=== PATIENT | male | born 1945 | race Caucasian/White ===

== ENCOUNTER 2018-02-14 11:52 | Emergency (ER) | payer OTHER ==
--- NOTE | 2018-02-14 13:02 | EDPHY ---
H & P Stated Complaint: 2 weeks fatigue and sob/sent by cardiology Time Seen by Provider: 02/14/18 12:39 HPI/ROS: CHIEF COMPLAINT: Shortness of breath HISTORY OF PRESENT ILLNESS: 72-year-old male with CAD presents with exertional shortness of breath. Over the past 2 weeks, he becomes short of breath with exertion. Yesterday he was hiking at elevation and felt much more fatigued than usual and could not keep up to his hiking group. He denies chest pain, leg swelling. Similar to prior cardiac symptoms. REVIEW OF SYSTEMS: complete 10 point ROS negative except at noted in the HPI - Personal History Current Tetanus Diphtheria and Acellular Pertussis (TDAP): Yes Tetanus Vaccine Date: <10 YRS 2005 - Medical/Surgical History Hx Asthma: No Hx Chronic Respiratory Disease: No Hx Diabetes: No Hx Cardiac Disease: Yes Hx Renal Disease: No Hx Cirrhosis: No Hx Alcoholism: No Hx HIV/AIDS: No Hx Splenectomy or Spleen Trauma: No Other PMH: cardiac stents/ prostatectomy/cancer/spinal stenosis/appy/ - Social History Smoking Status: Former smoker Alcohol Use: Sober Drug Use: None - Physical Exam Exam: General Appearance: Alert, pleasant Eyes: Pupils equal and round, no conjunctival pallor or injection ENT, Mouth: Mucous membranes moist Neck: Normal inspection Respiratory: Lungs are clear to auscultation Cardiovascular: Regular rate and rhythm Gastrointestinal: Abdomen is soft and nontender Neurological: A&O, nonfocal exam Skin: Warm and dry, no rash Extremities: Nontender, no pedal edema Psychiatric: Mood and affect normal Constitutional: Initial Vital Signs Temperature (C) 36.8 C 02/14/18 11:59 Heart Rate 60 02/14/18 11:59 Respiratory Rate 18 02/14/18 11:59 Blood Pressure 135/71 H 02/14/18 11:59 O2 Sat (%) 97 02/14/18 11:59 O2 Delivery Mode Room Air Allergies/Adverse Reactions: No Known Allergies Allergy (Verified 02/14/18 11:57) Home Medications: Medication Instructions Recorded Acyclovir 02/14/18 Bethanechol 02/14/18 Coq-10 02/14/18 Multivitamins 02/14/18 Omeprazole 02/14/18 Ranitidine HCl 02/14/18 Zocor 02/14/18 buPROPion 02/14/18 Medical Decision Making - Diagnostics EKG Interpretation: EKG interpreted by me reveals sinus rhythm, rate 54, no ST or T segment changes. Interpretation: Normal EKG Imaging Results: Imaging Impressions Chest X-Ray 02/14/18 12:40 Impression: No acute pulmonary disease. Chest/Thorax CTA 02/14/18 13:29 Impression: 1. Negative evaluation for acute PE. 2. Spiculated left upper lobe pulmonary nodule measuring up to 8 mm. Recommend follow-up CT in 6-12 months, then CT at 18-24 months to assess stability. 3. Calcified coronary arteries. 4. Small hiatal hernia. Protocol results ED Course/Re-evaluation: This patient presents with exertional dyspnea. Stat EKG reveals no evidence of ischemia or dysrhythmia. Chest x-ray is unremarkable. I-STAT troponin is normal. D-dimer elevated at 1.12, CT pulmonary angiogram ordered to rule out pulmonary embolism. CT scan negative for pulmonary embolism. There is a JESSY nodule, discussed with the patient and his , will follow up promptly. Advised admission for exertional dyspnea. The patient declines and would like to follow up with Cardiology as an outpatient. Dr. Carl Brady was consulted, will arrange for outpt nuclear stress test. Strongly encouraged pt to return for worsening sx, any concerns. Differential Diagnosis: Differential diagnosis includes though it is not limited to pneumonia, pneumothorax, pulmonary embolism, aortic dissection, pericarditis, acute coronary syndrome. - Data Points Laboratory Results: Laboratory Results 02/14/18 12:50 02/14/18 12:50 02/14/18 02/14/18 02/14/18 15:19 12:55 12:50 WBC RBC Hgb Hct MCV MCH MCHC RDW Plt Count MPV Neut % (Auto) Lymph % (Auto) [place] % (Auto) Eos % (Auto) Baso % (Auto) Nucleat RBC Rel Count Absolute Neuts (auto) Absolute Lymphs (auto) Absolute Monos (auto) Absolute Eos (auto) Absolute Basos (auto) Absolute Nucleated RBC Immature Gran % Immature Gran # D-Dimer 1.12 ug/mLFEU H ug/mLFEU (0.00-0.50) Sodium Potassium Chloride Carbon Dioxide Anion Gap BUN Creatinine Estimated GFR Glucose Calcium POC Troponin I 0.00 ng/mL ng/mL 0.01 ng/mL ng/mL (0.00-0.08) (0.00-0.08) NT-Pro-B Natriuret Pep 02/14/18 02/14/18 12:50 12:50 WBC 6.73 10^3/uL 10^3/uL (3.80-9.50) RBC 4.63 10^6/uL 10^6/uL (4.40-6.38) Hgb 12.6 g/dL L g/dL (13.7-17.5) Hct 38.6 % L % (40.0-51.0) MCV 83.4 fL fL (81.5-99.8) MCH 27.2 pg L pg (27.9-34.1) MCHC 32.6 g/dL g/dL (32.4-36.7) RDW 15.0 % % (11.5-15.2) Plt Count 217 10^3/uL 10^3/uL (150-400) MPV 10.5 fL fL (8.7-11.7) Neut % (Auto) 59.7 % % (39.3-74.2) Lymph % (Auto) 23.6 % % (15.0-45.0) [place] % (Auto) 9.8 % % (4.5-13.0) Eos % (Auto) 6.2 % % (0.6-7.6) Baso % (Auto) 0.6 % % (0.3-1.7) Nucleat RBC Rel Count 0.0 % % (0.0-0.2) Absolute Neuts (auto) 4.01 10^3/uL 10^3/uL (1.70-6.50) Absolute Lymphs (auto) 1.59 10^3/uL 10^3/uL (1.00-3.00) Absolute Monos (auto) 0.66 10^3/uL 10^3/uL (0.30-0.80) Absolute Eos (auto) 0.42 10^3/uL H 10^3/uL (0.03-0.40) Absolute Basos (auto) 0.04 10^3/uL 10^3/uL (0.02-0.10) Absolute Nucleated RBC 0.00 10^3/uL 10^3/uL (0-0.01) Immature Gran % 0.1 % % (0.0-1.1) Immature Gran # 0.01 10^3/uL 10^3/uL (0.00-0.10) D-Dimer Sodium 142 mEq/L mEq/L (135-145) Potassium 4.3 mEq/L mEq/L (3.3-5.0) Chloride 104 mEq/L mEq/L (97-110) Carbon Dioxide 25 mEq/l mEq/l (22-31) Anion Gap 13 mEq/L mEq/L (8-16) BUN 30 mg/dL H mg/dL (7-23) Creatinine 0.9 mg/dL mg/dL (0.7-1.3) Estimated GFR > 60 Glucose 89 mg/dL mg/dL (70-100) Calcium 8.9 mg/dL mg/dL (8.5-10.4) POC Troponin I NT-Pro-B Natriuret Pep 199 pg/mL H pg/mL (0-125) Point of Care Test Results: Chemistry 02/14/18 02/14/18 15:19 12:55 POC Troponin I 0.00 ng/mL ng/mL 0.01 ng/mL ng/mL (0.00-0.08) (0.00-0.08) Departure - Departure Disposition: Home, Routine, Self-Care Clinical Impression: Dyspnea Qualifiers: Dyspnea type: dyspnea on exertion Qualified Code(s): R06.09 - Other forms of dyspnea Condition: Good Instructions: Dyspnea (ED) Additional Instructions: You do not have a blood clot in the lung. There is a pulmonary nodule measuring 8 x 6 mm in the left upper lobe. You will need follow-up regarding this finding. This nodule was present on a CT scan in 2013 and has slightly increased in size. Referrals: Luke Brady MD [Medical Doctor] - As per Instructions (Call to make an appointment.)
[2018-02-14 13:03] LABS: PLATELET COUNT 217 10^3/uL (150-400)
--- NOTE | 2018-02-14 13:06 | CPEKG ---
Heart Rate: 54 RR Interval: 1111 P-R Interval: 184 QRSD Interval: 96 QT Interval: 424 QTC Interval: 402 P [place]: -45 QRS [place]: -16 T Wave [place]: 38 EKG Severity - OTHERWISE NORMAL ECG - EKG Impression: SINUS OR ECTOPIC ATRIAL RHYTHM EKG Impression: BORDERLINE LEFT AXIS DEVIATION Electronically Signed By: Pratibha Peng 14-Feb-2018 15:20:07
[2018-02-14] MEDS ORDERED: IOPAMIDOL (ISOVUE 370) 100 ML BTL IV ONE (13:33)
[2018-02-14 16:08] VITALS: BP 132/64
== END 2018-02-14 16:07 | disposition home or self-care (01) ==
DX: R06.09 Other forms of dyspnea (principal); Z87.891 Personal history of nicotine dependence
CPT/HCPCS: 71046; 71275; 93005; 99285; Q9967; 84484-PO

== ENCOUNTER → 2018-04-29 | Outpatient (CLI) | payer OTHER | LOC: BHFA 13:15 | PROVIDERS: ATTEND Internal Medicine Interventional Cardiology | DX: R53.83 Other fatigue (principal); R06.02 Shortness of breath; E78.5 Hyperlipidemia, unspecified ==

== ENCOUNTER → 2018-05-16 | Outpatient (CLI) | payer OTHER | LOC: BHFA 15:30 | PROVIDERS: ATTEND Internal Medicine Cardiovascular Disease | DX: R06.02 Shortness of breath (principal); I25.10 Atherosclerotic heart disease of native coronary artery without angina pectoris; Q21.0 Ventricular septal defect ==